=== PATIENT | male | born 1950 | race Caucasian/White ===

== ENCOUNTER → 2019-04-02 | Outpatient (CLI) | payer MEDICARE, OTHER ==
--- NOTE | 2019-04-02 18:29 | CT ---
EXAMINATION TYPE: CT ankle RT wo con DATE OF EXAM: 04/02/2019 COMPARISON: None HISTORY: 69-year-old male chronic ankle dislocation and pain TECHNIQUE: Contiguous axial scanning of the right ankle without IV contrast. Coronal and sagittal rec onstructions performed. 3-D reconstructions generated on an independent workstation. CT DLP: 194 mGycm Automated exposure control for dose reduction was used. FINDINGS: There is posterior and lateral subluxation of the calcaneus relative to the talus. The hindfoot is in valgus and there is abutment of the lateral calcaneus with the inferior fibula. Extensive joint effusion and tenosynovial fluid is present throughout. Large 1.5 x 4.[address] seen along the posterior aspect of the distal tibial shaft likely corresponding to the posterior t ibialis myotendinous junction. Much of the effusions and tenosynovial fluid have some associated soft tissue attenuating material associated also containing punctate calcifications. Extensive vascular calcifications suggest underlying diabetes and nephrotic kidney disease. There is abnormal medial rotation of the talar head relative to the navicular with impaction, erosion , and [id number] abutment of the lateral aspect of the distal talar articular surface against the m edial navicular margin. The posterior tibial tendon appears to course inferior to the talar head to m luis eduardo its way to the insertion. Some mild scattered bony debris is present in this region. The tibiotalar joint appears overall intact. Midfoot articulation appears grossly intact. Fragmented os trigonum is noted. Mild thickening of the middle third Achilles tendon. IMPRESSION: 1. EXTENSIVE JOINT EFFUSION/SYNOVITIS AND TENOSYNOVIAL FLUID THROUGHOUT. A COUPLE PROMINENT GANGLION CYSTS ARE ALSO PRESENT SUCH A DOMINANT 4.0 X 1.5 CM GANGLION CYST ALONG THE POSTERIOR ASPECT OF TH E DISTAL TIBIAL SHAFT LIKELY ALONG THE POSTERIOR TIBIALIS MYOTENDINOUS JUNCTION. MUCH OF THE FLUID LEDBETTER S AREAS OF SOFT TISSUE ATTENUATION AND ASSOCIATED PUNCTATE CALCIFICATIONS. CORRELATE FOR POSSIBLE GARY OLOGY SUCH NODULAR SYNOVITIS, PVNS, AND GOUT. 2. HINDFOOT VALGUS WITH LATERAL CALCANEAL FIBULAR ABUTMENT RESULTING FROM POSTERIOR AND LATERAL SUBLU XATION OF THE CALCANEUS RELATIVE TO THE TALUS AND ABNORMAL MEDIAL ROTATION OF THE TALAR HEAD RELATIVE TO THE NAVICULAR. THERE IS IMPACTION, [id number] ABUTMENT, AND EROSION OF THE CONTACTING TALAR HEA D ARTICULAR SURFACE AGAINST THE MEDIAL NAVICULAR MARGIN. SOME SCATTERED BONY DEBRIS IS ALSO PRESENT. NEUROPATHIC ARTHROPATHY WOULD ALSO BE A CONSIDERATION GIVEN THIS BONY FRAGMENTATION, EFFUSIONS, AND D ISORGANIZATION. 3. THE POSTERIOR TIBIAL TENDON APPEARS TO COURSE INFERIOR TO THE SUBLUXED TALAR HEAD TO REACH ITS FOX ICULAR ATTACHMENT.
== END | disposition home or self-care (01) ==
LOC: RADCTMAIN 13:19
PROVIDERS: ATTEND Orthopaedic Surgery
DX: S93.01XA Subluxation of right ankle joint, initial encounter (principal); M65.871 Other synovitis and tenosynovitis, right ankle and foot; M67.471 Ganglion, right ankle and foot; M21.071 Valgus deformity, not elsewhere classified, right ankle

== ENCOUNTER 2019-05-20 06:08 | Observation (INO) | payer MEDICARE, OTHER ==
[~2019-05-20 06:08] MED LIST: DEXAMETHASONE SOD PHOSPHATE 10 MG/ML 1 ML VIAL IV ONE; HYDROmorphone 0.5 MG/0.5 ML SYRINGE IVP PRN; MIDAZOLAM 2 MG/2 ML VIAL IV PRN; ONDANSETRON 4 MG/2 ML VIAL IVP ONE
[2019-05-20] MEDS ORDERED: LIDOCAINE 1% 20 ML VIAL (10MG/ML) FOR IV START INTRADERMA ONE (07:06)
[2019-05-20] MEDS: LACTATED RINGERS 1,000 ML IV SCH ×4 (07:06→23:55)
[2019-05-20] MEDS ORDERED: fentaNYL (PF) 50 MCG/ML 2 ML AMP IV ONE (07:27)
[2019-05-20] MEDS ORDERED: ROPIVACAINE 5 MG/ML 30 ML VIAL ONE (07:54)
[2019-05-20] MEDS ORDERED: DEXAMETHASONE SOD PHOSPHATE 4 MG/ML 1 ML VIAL ONE (07:54)
[2019-05-20] MEDS ORDERED: PROPOFOL 10 MG/ML 20 ML VIAL IV ONE (07:54)
[2019-05-20] MEDS ORDERED: SUCCINYLCHOLINE CHLORIDE 100 MG/5 ML SYR IV ONE (07:54)
[2019-05-20] MEDS ORDERED: fentaNYL (PF) 50 MCG/ML 2 ML AMP ONE (07:54)
[2019-05-20] MEDS ORDERED: LIDOCAINE 1% INJ 10MG/ML (20 ML MDV) ONE (07:54)
[2019-05-20] MEDS ORDERED: MIDAZOLAM 2 MG/2 ML VIAL ONE (07:54)
[2019-05-20] MEDS ORDERED: ePHEDrine SULFATE/0.9% NACL/PF 50 MG/5 ML SYRINGE IV ONE (07:54)
[2019-05-20] MEDS ORDERED: PHENYLEPHRINE-0.9% NACL SYG 1 MG/10 ML SYRINGE ONE (07:54)
[2019-05-20] MEDS ORDERED: LACTATED RINGERS 1,000 ML IV ONE (08:55)
[2019-05-20] MEDS ORDERED: SENNOSIDES-DOCUSATE SODIUM 1 EACH TAB PO PRN (11:22)
[2019-05-20] MEDS ORDERED: HYDROmorphone 0.5 MG/0.5 ML SYRINGE IVP PRN ×2 (11:22)
[2019-05-20] MEDS ORDERED: ONDANSETRON 4 MG/2 ML VIAL IVP PRN (11:22)
[2019-05-20] MEDS ORDERED: hydrOXYzine PAMOATE 25 MG CAP PO PRN (11:22)
--- NOTE | 2019-05-20 11:27 | XR ---
EXAMINATION TYPE: XR ankle limited RT DATE OF EXAM: 05/20/2019 COMPARISON: NONE HISTORY: ORIF right ankle TECHNIQUE: One intraoperative lateral view of the ankle is submitted. FINDINGS: Extensive postsurgical changes are noted. Resolution is limited. IMPRESSION: Postsurgical change
--- NOTE | 2019-05-20 11:58 | FL ---
EXAMINATION TYPE: FL guidance operating room DATE OF EXAM: 05/20/2019 HISTORY: Flouroscopy time 1 minute and 24 seconds of fluoroscopy provided. IMPRESSION: 1. Fluoroscopy time.
--- NOTE | 2019-05-20 12:03 | P.OP ---
Date of Procedure: 05/20/19 Preoperative Diagnosis: 1. Chronically dislocated talonavicular joint, right 2. Severe right pes plano abductovalgus deformity 3. Right tendo Achilles tendon contracture Postoperative Diagnosis: Same Procedure(s) Performed: 1. Right talonavicular joint fusion 2. Right subtalar joint fusion 3. Right percutaneous tendo Achilles lengthening (Bucky triple hemisection) 4. Right peroneus brevis tenotomy 5. Application of short leg splint by physician, right Anesthesia: JANETTE, regional Surgeon: Miguel A Palmer Frame Gate Mortiser Operator #1: Karl Tuttle Estimated Blood Loss (ml): 25 IV fluids (ml): 1,200 Pathology: other (Joint fluid sent for culture) Condition: stable Disposition: PACU Indications for Procedure: The patient is very pleasant previously healthy 69-year-old male who is had a long-standing history of problems with his right leg. He sustained an injury about a year ago and has had progressively worsening pain and deformity. He came to see me in the office and was found to have a severe flatfoot deformity and a chronically dislocated talonavicular joint. He was sent for a computed tomography scan and vascular workup. His vascular examination showed adequate inflow to the foot. The computed tomography scan showed a chronically dislocated talonavicular joint and subluxed subtalar joint. We discussed nonsurgical treatment with bracing versus surgery. The patient and his requested surgery. My recommendation was to perform a double arthrodesis of the subtalar and talonavicular joints. We also discussed doing soft tissue releases to help facilitate reduction of the dislocated joints. We discussed the potential risks and complications of surgery including but not limited to risk of anesthesia, superficial infection, deep infection, delayed wound healing, superficial wound necrosis, damage to local blood vessels or nerves, nonunion the fusion site, malunion of the fusion site, symptomatically hardware, under correction of the deformity, overcorrection of the deformity, recurrence of the deformity, and inability to regain preinjury level of function, DVT, PE, other medical complications, overall the satisfaction of the surgical outcome, possibly need for further surgery, and potentially loss of life or limb. The patient voiced his understanding of these potential complications and also acknowledges that other less common complications are possible. He provided his verbal and written consent to go forward with surgery Description of Procedure: The patient was identified in preoperative holding and the correct right leg was marked with my initials. I reviewed the consent form with the patient and his . All their questions were answered. The patient was given a popliteal and saphenous nerve block by anesthesia. He was then brought back to the operating room by anesthesia. He was positioned on the OR table where a general anesthetic and preoperative antibiotics were given. A bump was placed in the right buttock inflated rotating the leg to neutral. A tourniquet was applied to the proximal aspect of the right leg. A bump was placed under the right leg to facilitate imaging. The right leg was then prepped and draped in the standard sterile fashion. Prior to starting surgery timeout was performed identifying the correct patient, operative extremity, and procedure. The leg was then Exsanguinated with an Esmarch bandage, and the tourniquet was inflated to 250 mmHg. I began by performing a tendo Achilles lengthening. 3 stab incisions were made at 2 cm increments over the posterior Achilles tendon just proximal to the posterior tuberosity of the calcaneus. The medial half of the tendon was incised proximally and distally and the lateral half of the tendon was incised in the middle stab incision. A gentle dorsiflexion a force was applied to the ankle and there was an audible and palpable pop of the tendon lengthened. After the tendon was lengthened it was still in continuity. I outlined incisions for a lateral approach the subtalar joint and a dorsal approach to the talonavicular joint. Skin incision was made laterally with a scalpel and dissection was carried down carefully to the subcu thickness tissue with tenotomy scissors. The peroneal tendon sheath was opened and the contracted hernias brevis was sharply excised to help facilitate reduction. The subtalar joint was then exposed and the articular cartilage from the posterior middle facets of the calcaneus and undersurface of the talus was removed using a combination of osteotomes and curettes. Attention was then turned to the dorsal foot. Skin incision was made with a scalpel and dissection was carried down through the subcutaneous tissue with tenotomy scissors. The capsule of the talonavicular joint was opened and there was a large amount of clear synovial fluid which was swabbed and sent for cultures. The tear head was found to be completely dislocated within its own pseudocapsule. There was wearing of the navicular bone medially from where it was articulating with the lateral talar head. The joint was then distracted and all the remaining articular cartilage was removed with a combination of osteotomes and curettes. The joints were thoroughly irrigated with sterile saline to remove all debris to help facilitate fusion. Both bony surfaces were then thoroughly perforated with a 2.5 mm drill bit to help facilitate fusion. A mixture of crushed cancellus allograft and augment was packed into both fusion sites. I began by reducing and pinning the talonavicular joint. I then proceeded to reduce, pin, and placed partially threaded cannulated 7.0 mm screws across the subtalar joint. A cannulated partially threaded 5.5 mm screw was placed through the navicular tuberosity and into the talar body generating excellent compression. A compression staple was then placed over the dorsal aspect of the talonavicular joint. Crushed cancellus allograft and augment was packed around both joints to help with fusion. Final fluoroscopic images were taken. The deep layers of both wounds were closed with 0 Vicryl. The subcutaneous tissue was thoroughly irrigated with sterile saline. The deep subcu was reapproximated using 3-0 Monocryl and the skin was closed using 3-0 nylon Allgower modification of the Donati stitch. Brown quarter and stretchy Steri-Strips were placed. The stab incisions over the heel from the subtalar screws were closed with 3-0 nylon. A sterile dressing was applied consisting of Betadine soaked Adaptic, 4 x 4, web roll. A well-padded bulky Mena splint was placed with the ankle in neutral. The patient was awoken from his anesthetic, transferred to a raustin, and brought to recovery having tolerated the procedure well. Karl Tuttle PA-C was required as a skilled sound assistant for patient positioning, surgical exposure, retraction, placement of hardware and a closure of wound, and application of splint. Plan: The patient is going to be admitted overnight for pain control, IV antibiotics, and physical therapy. We'll check her 25-hydroxy vitamin D level. Internal medicine for postoperative medical management. Anticipate discharge home tomorrow.
[2019-05-20 12:29] LABS: Basophils % (A) 0 %; Eosinophils # (A) 0.1 k/uL (0-0.7); Eosinophils % (A) 1 %; HGB 11.8 gm/dL (13.0-17.5); Lymphocytes # (A) 0.5 k/uL (1.0-4.8); Lymphocytes % (A) 7 %; MCH 30.1 pg (25.0-35.0); MCHC 32.7 g/dL (31.0-37.0); MCV 91.8 fL (80.0-100.0); Mean Platelet Volume 7.2; Monocytes # (A) 0.1 k/uL (0-1.0); Monocytes % (A) 2 %; Neutrophils % (A) 90 %; Platelet Count 271 k/uL (150-450); RBC 3.92 m/uL (4.30-5.90); RDW 15.1 % (11.5-15.5); WBC 6.6 k/uL (3.8-10.6)
[2019-05-20 12:36] VITALS: BMI 32.2
[2019-05-20] MEDS: HYDROcodone/APAP 5-325MG 1 EACH TAB PO PRN ×2 (15:17→22:00)
--- NOTE | 2019-05-20 16:32 | P.CONS ---
History of Present Illness - Reason for Consult Consult date: 05/20/19 Medical management - Chief Complaint Right ankle pain - History of Present Illness 69-year-old male with history of hypothyroidism, essential hypertension and hyperlipidemia presenting to the hospital for elective right ankle ORIF. He reports long-standing history of problems with his right leg. For the past year has been having progressively worsening pain and deformity in the right ankle. He reports not being able to walk comfortably because of severe right ankle pain, he has to move slowly. Denied having fevers, chills, recent illness, chest pain or shortness of breath. No nausea or vomiting. No diarrhea. Review of Systems Complete review of system performed pertinent positives and negative per HPI Past Medical History Past Medical History: CVA/TIA, GERD/Reflux, Hearing Disorder / Deafness, Hypertension, Musculoskeletal Disorder, Sleep Apnea/CPAP/BIPAP, Thyroid Disorder Additional Past Medical History / Comment(s): uses CPAP, hx. ruptured brain aneurysm 8 years ago, TIA-no residual effects History of Any Multi-Drug Resistant Organisms: None Reported Past Surgical History: Hernia Repair Additional Past Surgical History / Comment(s): surg. to repair brain aneursym- coil inserted 2010. abdominal hernia repair 2014. Past Anesthesia/Blood Transfusion Reactions: No Reported Reaction Past Psychological History: Depression Smoking Status: Former smoker Past Alcohol Use History: Occasional Additional Past Alcohol Use History / Comment(s): quit smoking 50 yrs. ago, smoked only few years, used to drink heavily years ago but not anymore Past Drug Use History: None Reported - Past Family History Mother Family Medical History: No Reported History Medications and Allergies Home Medications Medication Instructions Recorded Confirmed Type Acetaminophen Tab [Tylenol Tab] 500 mg PO Q6H PRN 05/18/19 05/20/19 History Cholecalciferol [Vitamin D3] 200 unit PO DAILY@1200 05/18/19 05/20/19 History Enalapril [Vasotec] 20 mg PO DAILY 05/18/19 05/20/19 History Ferrous Sulfate [Feosol] 65 mg PO DAILY 05/18/19 05/20/19 History Gabapentin [Neurontin] 400 mg PO HS 05/18/19 05/20/19 History Levothyroxine Sodium [Synthroid] 150 mcg PO DAILY 05/18/19 05/20/19 History Loperamide [Imodium] 2 mg PO QID PRN 05/18/19 05/20/19 History Meloxicam [Mobic] 15 mg PO DAILY 05/18/19 05/20/19 History Pantoprazole Sodium [Protonix] 40 mg PO DAILY 05/18/19 05/20/19 History Rosuvastatin [Crestor] 20 mg PO HS 05/18/19 05/20/19 History Spironolactone [Aldactone] 25 mg PO DAILY 05/18/19 05/20/19 History Venlafaxine HCl [Effexor] 150 mg PO HS 05/18/19 05/20/19 History amLODIPine [Norvasc] 10 mg PO HS 05/18/19 05/20/19 History Allergies Allergy/AdvReac Type Severity Reaction Status Date / Time No Known Allergies Allergy Verified 05/20/19 06:53 Physical Exam Vitals: Vital Signs Temp Pulse Resp BP Pulse Ox 05/20/19 14:00 91 142/81 05/20/19 13:45 90 149/85 05/20/19 13:30 77 130/83 05/20/19 13:15 47 L 141/70 05/20/19 12:45 93 135/83 05/20/19 12:30 90 137/70 05/20/19 12:15 89 134/74 05/20/19 12:00 98.6 F 94 16 144/72 94 L 05/20/19 11:45 92 18 132/67 94 L 05/20/19 11:30 92 16 132/67 93 L 05/20/19 11:18 97.8 F 92 14 138/74 97 05/20/19 06:49 97.6 F 79 16 160/86 96 Intake and Output 05/20/19 05/20/19 05/20/19 06:59 14:59 22:59 Intake Total 1600 Output Total 520 Balance 1080 Intake: IV 1600 Output: Urine 500 Estimated Blood Loss 20 Other: # Voids 1 Constitutional: No acute distress, conversant, pleasant Eyes:Anicteric sclerae, moist conjunctiva, no lid-lag, PERRLA, ENMT: Oropharynx clear, no erythema, exudates Neck: Supple, FROM, no masses, or JVD, No carotid bruits, No thyromegaly Lungs: Clear to auscultation, Clear to percussion, Normal respiratory effort, no accessory muscle use Cardiovascular: Heart regular in rate and rhythm, No murmurs, gallops, or rubs, No peripheral edema Abdominal: Soft, Nontender, no guarding, rebound or rigidity, Normoactive bowel sounds, No hepatomegaly, No splenomegaly, No palpable mass Skin: Normal temperature, tone, texture, turgor, no induration, No subcutaneous nodules, No rash, lesions, No ulcers Extremities: Right lower extremity splint No digital cyanosis, No clubbing, Pedal pulses intact and symmetrical, Radial pulses intact and symmetrical, No calf tenderness Psychiatric: Alert and oriented to person, place and time, appropriate affect, intact judgement Neuro: Muscles Strength 5/5 in all 4 extremities, Sensation to light touch grossly present throughout, Cranial nerves II-XII grossly intact, no focal sensory deficits Results CBC & Chem 7: 05/20/19 11:59 Labs: Abnormal Lab Results - Last 24 Hours (Table) 05/20/19 Range/Units 11:59 RBC 3.92 L (4.30-5.90) m/uL Hgb 11.8 L (13.0-17.5) gm/dL Hct 36.0 L (39.0-53.0) % Lymphocytes # 0.5 L (1.0-4.8) k/uL Assessment and Plan Plan: Postoperative day #2 status post right ankle ORIF Management per surgery, pain control with narcotics when necessary Chronic Hypothyroidism Essential hypertension Hyperlipidemia Depression All stable Resume meds
[2019-05-20] MEDS: amLODIPine 10 MG TAB PO SCH (20:18)
[2019-05-20] MEDS: GABAPENTIN 400 MG CAP PO SCH (20:18)
[2019-05-20] MEDS: ATORVASTATIN 40 MG TAB PO SCH (20:18)
[2019-05-20] MEDS: VENLAFAXINE HCL 75 MG TAB PO SCH (20:18)
[2019-05-21] MEDS: HYDROcodone/APAP 5-325MG 1 EACH TAB PO PRN ×4 (05:47→23:21)
[2019-05-21] MEDS: LEVOTHYROXINE 75 MCG TAB PO SCH (05:48)
--- NOTE | 2019-05-21 08:24 | P.PN ---
Subjective Progress Note Date: 05/21/19 This patient is a 69-year-old male who has long-standing history of problems with his right foot. He was seen in the office by Dr. aPlmer and was found to have a severe flatfoot deformity and a chronically dislocated talonavicular joint. Nonsurgical vs surgical treatment was discussed, and the patient requested surgery. The patient underwent a right talonavicular joint fusion, a subtalar joint fusion, percutaneous tendo Achilles lengthening, and a peroneus brevis tenotomy on 05/20/[address] Palmer. Today is postoperative day #1. The patient is examined bedside. The patient states he is experiencing moderate pain in the right foot. He was recently given a dose of IV Dilaudid. He states he has been up multiple times throughout the night, while remaining nonweightbearing on the operative leg with the assistance of a walker. He is having minimal issues with transferring, per patient. He has not yet worked with physical therapy. He's been tolerating his diet well. He has had a bowel movement postoperatively. He states overall he is doing well, he requested discharge to a rehab center. Patient denies chest pain, shortness of breath, nausea, vomiting, fevers, chills, numbness or tingling of the right lower extremity. Vital signs stable. Objective - Vital Signs Vital signs: Vital Signs Temp 98.9 F 05/21/19 07:18 Pulse 77 05/21/19 07:18 Resp 16 05/21/19 07:18 BP 137/80 05/21/19 07:18 Pulse Ox 97 05/21/19 07:18 Intake & Output 05/20/19 05/21/19 05/21/19 18:59 06:59 18:59 Intake Total 1600 1580 Output Total 520 Balance 1080 1580 Intake: IV 1600 Intake, IV Titration 1000 Amount Lactated Ringers 1,000 ml 1000 @ 100 mls/hr IV .Q10H ZEE Rx#:[id number] Oral 580 Output: Urine 500 Estimated Blood Loss 20 Other: Voiding Method Urinal # Voids 1 1 # Bowel Movements 1 - Exam On examination, the patient is lying in bed in no acute distress. The patient is alert and oriented 3. On inspection of the right lower extremity, there is a bulky Mena splint in place. The splint is clean, dry, and intact. The right toes are warm and well perfused, with capillary refill less than 2 seconds. The patient is able to wiggle his right toes without difficulty. Sensation is intact to light touch of the right lower extremity. Neurovascular is intact of the right lower extremity. The left calf is soft and nontender. Vital signs stable. - Labs CBC & Chem 7: 05/20/19 11:59 Labs: Abnormal Lab Results - Last 24 Hours (Table) 05/20/19 05/20/19 Range/Units 11:59 11:59 RBC 3.92 L (4.30-5.90) m/uL Hgb 11.8 L (13.0-17.5) gm/dL Hct 36.0 L (39.0-53.0) % Lymphocytes # 0.5 L (1.0-4.8) k/uL Vitamin D 25-Hydroxy 29.9 L (30.0-100.0) ng/mL Microbiology - Last 24 Hours (Table) 05/20/19 08:41 Gram Stain - Preliminary Ankle - Right Wound Culture - Preliminary 05/20/19 08:41 Anaerobic Culture - Preliminary Ankle - Right Assessment and Plan Assessment: Chronically dislocated right talonavicular joint, severe right pes plano abductovalgus deformity, tendo Achilles tendon contracture status-post right talonavicular joint fusion, subtalar joint fusion, percutaneous tendo Achilles lengthening, peroneus brevis tenotomy on 05/20/[address] Palmer. Postoperative day #1. Plan: - Strict nonweightbearing of the right lower extremity. Ice and elevate the right lower extremity to decrease pain and swelling. - Physical therapy for gait and balance training. - Continue pain management. Decrease use of IV Dilaudid as tolerated. -Intraoperative cultures pending. We'll continue to follow results. - Lovenox while he is inpatient for anticoagulation. - 2 doses of postoperative antibiotics complete. - Appreciate medicine consult for medical management. - Anticipate discharge to rehab center. Case management consulted for discharge planning. Patient discussed with Dr. Palmer.
--- NOTE | 2019-05-21 08:39 | P.ANPRN ---
Procedure Note - Anesthesia - Nerve Block Performed Right Popliteal Single Time Out Performed: Yes Date of Procedure: 05/20/19 Procedure Start Time: 07:26 Procedure Stop Time: 07:32 Location of Patient Procedure: PreOp Indication: Acute Post-Operative Pain, Requested by physician Sedation Type: Sedate with meaningful contact maintained Preparation: Sterile Prep Position: Left Lateral Needle Types: Pajunk Needle Gauge: 21 Technique: Ultrasound (Ropivacaine 0.5%-30 mL plus dexamethasone 4 mg) Blood Aspirated: No Pain Paresthesia on Injection Noted: No Resistance on Injection: Normal Events: Uneventful and Well Tolerated
[2019-05-21] MEDS: LACTATED RINGERS 1,000 ML IV SCH ×3 (09:31→20:08)
[2019-05-21] MEDS: HYDROmorphone 0.5 MG/0.5 ML SYRINGE IVP PRN ×2 (09:31→13:57)
[2019-05-21] MEDS: FERROUS SULFATE 325 MG TAB PO SCH (09:31)
[2019-05-21] MEDS: ENOXAPARIN 40 MG/0.4 ML SYRINGE SQ SCH (09:31)
[2019-05-21] MEDS: LISINOPRIL 20 MG TAB PO SCH (09:31)
[2019-05-21] MEDS: SPIRONOLACTONE 25 MG TAB PO SCH (09:31)
[2019-05-21] MEDS: PANTOPRAZOLE 40 MG TABLET PO SCH (09:31)
--- NOTE | 2019-05-21 09:51 | P.PN ---
Subjective Progress Note Date: 05/21/19 Principal diagnosis: Ankle pain, right s/p ORIF Patient is still having resting pain in the right ankle. He was given some Dilaudid this morning about 2 hours ago, currently still having right ankle pain. No chest pain or shortness of breath. Objective - Vital Signs Vital signs: Vital Signs Temp 98.9 F 05/21/19 07:18 Pulse 77 05/21/19 07:18 Resp 16 05/21/19 07:18 BP 137/80 05/21/19 07:18 Pulse Ox 97 05/21/19 07:18 Intake & Output 05/20/19 05/21/19 05/21/19 18:59 06:59 18:59 Intake Total 1600 1580 Output Total 520 Balance 1080 1580 Intake: IV 1600 Intake, IV Titration 1000 Amount Lactated Ringers 1,000 ml 1000 @ 100 mls/hr IV .Q10H ZEE Rx#:[id number] Oral 580 Output: Urine 500 Estimated Blood Loss 20 Other: Voiding Method Urinal # Voids 1 1 # Bowel Movements 1 - Exam Constitutional: No acute distress, conversant, pleasant Eyes:Anicteric sclerae, moist conjunctiva, no lid-lag, PERRLA, ENMT: Oropharynx clear, no erythema, exudates Neck: Supple, FROM, no masses, or JVD, No carotid bruits, No thyromegaly Lungs: Clear to auscultation, Clear to percussion, Normal respiratory effort, no accessory muscle use Cardiovascular: Heart regular in rate and rhythm, No murmurs, gallops, or rubs, No peripheral edema Abdominal: Soft, Nontender, no guarding, rebound or rigidity, Normoactive bowel sounds, No hepatomegaly, No splenomegaly, No palpable mass Skin: Normal temperature, tone, texture, turgor, no induration, No subcutaneous nodules, No rash, lesions, No ulcers Extremities: Right lower extremity splint No digital cyanosis, No clubbing, Pedal pulses intact and symmetrical, Radial pulses intact and symmetrical, No calf tenderness Psychiatric: Alert and oriented to person, place and time, appropriate affect, intact judgement Neuro: Muscles Strength 5/5 in all 4 extremities, Sensation to light touch grossly present throughout, Cranial nerves II-XII grossly intact, no focal sensory deficits - Labs CBC & Chem 7: 05/20/19 11:59 Labs: Abnormal Lab Results - Last 24 Hours (Table) 05/20/19 05/20/19 Range/Units 11:59 11:59 RBC 3.92 L (4.30-5.90) m/uL Hgb 11.8 L (13.0-17.5) gm/dL Hct 36.0 L (39.0-53.0) % Lymphocytes # 0.5 L (1.0-4.8) k/uL Vitamin D 25-Hydroxy 29.9 L (30.0-100.0) ng/mL Microbiology - Last 24 Hours (Table) 05/20/19 08:41 Gram Stain - Preliminary Ankle - Right Wound Culture - Preliminary 05/20/19 08:41 Anaerobic Culture - Preliminary Ankle - Right Assessment and Plan Plan: Postoperative day #2 status post right ankle ORIF Management per surgery, pain control with norco and dilaudid Add miralax for constipation prophylaxis. Hypothyroidism Essential hypertension Hyperlipidemia Depression All stable Resume meds
[2019-05-21] MEDS: POLYETHYLENE GLYCOL 3350 17 GM POWD.PACK PO SCH (11:27)
[2019-05-21] MEDS: ATORVASTATIN 40 MG TAB PO SCH (20:07)
[2019-05-21] MEDS: VENLAFAXINE HCL 75 MG TAB PO SCH (20:07)
[2019-05-21] MEDS: amLODIPine 10 MG TAB PO SCH (20:07)
[2019-05-21] MEDS: GABAPENTIN 400 MG CAP PO SCH (20:07)
[2019-05-22 02:56] VITALS: RESP 16
[2019-05-22] MEDS: LEVOTHYROXINE 75 MCG TAB PO SCH (05:51)
[2019-05-22] MEDS: HYDROcodone/APAP 5-325MG 1 EACH TAB PO PRN ×2 (05:51→12:23)
[2019-05-22] MEDS: LACTATED RINGERS 1,000 ML IV SCH (05:56)
--- NOTE | 2019-05-22 08:28 | P.PN ---
Subjective Progress Note Date: 05/22/19 Tunde is doing better this morning and his pain is controlled. He has no complaints time of my evaluation. Objective - Vital Signs Vital signs: Vital Signs Temp 99.2 F 05/22/19 05:55 Pulse 85 05/22/19 01:30 Resp 16 05/22/19 01:30 BP 121/64 05/22/19 01:30 Pulse Ox 93 L 05/22/19 01:30 Intake & Output 05/21/19 05/22/19 05/22/19 18:59 06:59 18:59 Intake Total 1780 118 Balance 1780 118 Intake: Intake, IV Titration 1000 Amount Lactated Ringers 1,000 ml 1000 @ 100 mls/hr IV .Q10H ZEE Rx#:[id number] Oral 780 118 Other: Voiding Method Urinal # Voids 2 2 - Exam The patient is resting comfortably in bed. He is in no apparent distress and easily able to converse with me. A focused examination of the operative extremity shows a clean-appearing bulky Mena splint. The tips of the toes are warm and well perfused with brisk capillary refill. Motor and sensory function are intact in the tips of the toes. - Labs CBC & Chem 7: 05/20/19 11:59 Labs: Microbiology - Last 24 Hours (Table) 05/20/19 08:41 Gram Stain - Preliminary Ankle - Right Wound Culture - Preliminary Assessment and Plan Plan: Postoperative day #2 status post talonavicular and subtalar fusion and percutaneous tendo Achilles lengthening, doing well 1. Nonweightbearing operative extremity 2. Keep splint clean and dry 3. DVT prophylaxis with Lovenox while in house and will discharge home on aspirin 325 mg daily 4. Appreciate internal medicine's assistance with perioperative medical management 5. Awaiting final discharge plan, home versus subacute rehab
--- NOTE | 2019-05-22 08:29 | P.DS ---
Providers Date of admission: 05/22/19 05:52 Attending physician: Miguel A Palmer Consults: 05/20/19 11:22 Consult Physician Routine Consulting Provider: Lane Physician Consult Reason/Comments: Medical management Do you want consulting provider notified?: Yes Primary care physician: Tha Devries [facility] Course: The patient is a very pleasant 69-year-old male with significant deformity of the foot and a chronic talonavicular joint dislocation. He underwent surgery this past Friday. He is admitted following surgery for pain control, IV antibiotics, and discharge planning. He did well and was ultimately cleared for discharge. Plan - Discharge Summary Discharge Rx Participant: Yes New Discharge Prescriptions: New Aspirin 325 mg PO BID #28 tab Docusate [Colace] 100 mg PO BID #60 capsule Cholecalciferol (Vitamin D3) [Vitamin D3] 2,000 unit PO DAILY #30 capsule No Action Spironolactone [Aldactone] 25 mg PO DAILY Ferrous Sulfate [Feosol] 325 mg PO DAILY Cholecalciferol [Vitamin D3] 200 unit PO DAILY@1200 Acetaminophen Tab [Tylenol Tab] 500 mg PO Q6H PRN PRN Reason: Pain amLODIPine [Norvasc] 10 mg PO HS Venlafaxine HCl [Effexor] 150 mg PO HS Loperamide [Imodium] 2 mg PO QID PRN PRN Reason: Diarrhea Gabapentin [Neurontin] 400 mg PO HS Enalapril [Vasotec] 20 mg PO DAILY Meloxicam [Mobic] 15 mg PO DAILY Rosuvastatin [Crestor] 20 mg PO HS Pantoprazole Sodium [Protonix] 40 mg PO DAILY Levothyroxine Sodium [Synthroid] 150 mcg PO DAILY Discharge Medication List Acetaminophen Tab [Tylenol Tab] 500 mg PO Q6H PRN 05/18/19 [History] Cholecalciferol [Vitamin D3] 200 unit PO DAILY@1200 05/18/19 [History] Enalapril [Vasotec] 20 mg PO DAILY 05/18/19 [History] Ferrous Sulfate [Feosol] 325 mg PO DAILY 05/18/19 [History] Gabapentin [Neurontin] 400 mg PO HS 05/18/19 [History] Levothyroxine Sodium [Synthroid] 150 mcg PO DAILY 05/18/19 [History] Loperamide [Imodium] 2 mg PO QID PRN 05/18/19 [History] Meloxicam [Mobic] 15 mg PO DAILY 05/18/19 [History] Pantoprazole Sodium [Protonix] 40 mg PO DAILY 05/18/19 [History] Rosuvastatin [Crestor] 20 mg PO HS 05/18/19 [History] Spironolactone [Aldactone] 25 mg PO DAILY 05/18/19 [History] Venlafaxine HCl [Effexor] 150 mg PO HS 05/18/19 [History] amLODIPine [Norvasc] 10 mg PO HS 05/18/19 [History] Aspirin 325 mg PO BID #28 tab 05/21/19 [Rx] Cholecalciferol (Vitamin D3) [Vitamin D3] 2,000 unit PO DAILY #30 capsule 05/21/19 [Rx] Docusate [Colace] 100 mg PO BID #60 capsule 05/21/19 [Rx] Follow up Appointment(s)/Referral(s): Miguel A Palmer MD [Medical Doctor] - 2 Weeks Activity/Diet/Wound Care/Special Instructions: - Strict non-weight bearing on your operative leg. Use knee scooter, crutches, or walker to ambulate after surgery. - Do not remove splint. Keep splint clean, dry, intact. - Ice and elevate operative leg to decrease pain and swelling. - Take pain medications as prescribed. Take Colace as a stool softener. Take aspirin for blood clot prevention. - Follow-up in the office in [address] Palmer. - Call the office with any questions or concerns,
[2019-05-22] MEDS: SPIRONOLACTONE 25 MG TAB PO SCH (09:11)
[2019-05-22] MEDS: POLYETHYLENE GLYCOL 3350 17 GM POWD.PACK PO SCH (09:11)
[2019-05-22] MEDS: PANTOPRAZOLE 40 MG TABLET PO SCH (09:11)
[2019-05-22] MEDS: ENOXAPARIN 40 MG/0.4 ML SYRINGE SQ SCH (09:11)
[2019-05-22] MEDS: LISINOPRIL 20 MG TAB PO SCH (09:11)
[2019-05-22] MEDS: FERROUS SULFATE 325 MG TAB PO SCH (09:11)
[2019-05-22 09:57] VITALS: BP 133/70; PULSE 90; TEMP 98.6
== END 2019-05-22 12:59 | disposition home or self-care (01) ==
LOC: OR 06:08 → EDSTATUS 08:00 → 4SSUR 11:18 → OR 05-22 05:51 → 4SSUR 05-22 05:52
PROVIDERS: ADMIT Orthopaedic Surgery; ATTEND Orthopaedic Surgery
DX: M24.474 Recurrent dislocation, right foot (principal); M21.42 Flat foot [pes planus] (acquired), left foot; M67.01 Short Achilles tendon (acquired), right ankle; M10.9 Gout, unspecified; G47.33 Obstructive sleep apnea (adult) (pediatric); K21.9 Gastro-esophageal reflux disease without esophagitis; I10 Essential (primary) hypertension; E78.5 Hyperlipidemia, unspecified; E03.9 Hypothyroidism, unspecified; F32.9 Major depressive disorder, single episode, unspecified; Z79.899 Other long term (current) drug therapy; Z79.1 Long term (current) use of non-steroidal anti-inflammatories (NSAID); Z79.890 Hormone replacement therapy; Z99.89 Dependence on other enabling machines and devices; Z86.73 Personal history of transient ischemic attack (TIA), and cerebral infarction without residual deficits; Z98.890 Other specified postprocedural states; Z87.891 Personal history of nicotine dependence; H91.90 Unspecified hearing loss, unspecified ear
CPT/HCPCS: 97530; 97161; 97165; 64450; 85025; 82306; 87070; 87205; 87075; 73600; 28725; 28740; 27685; 28230; G0378; C1713 ×3; J2250; J1100 ×2; J0690; J2405; J2001; J1650 ×2; J3010; J2795; J2370; J0330; J2704; J1170